=== PATIENT | female | born 1960 | race Hispanic/Latino ===

== ENCOUNTER 2017-10-29 12:00 | Outpatient (CLI) | payer BC | END 2017-10-29 12:01 | disposition home or self-care (01) | LOC: BICRAD 12:00 | PROVIDERS: ATTEND Internal Medicine Rheumatology | DX: Z11.1 Encounter for screening for respiratory tuberculosis (principal); M05.79 Rheumatoid arthritis with rheumatoid factor of multiple sites without organ or systems involvement; M81.0 Age-related osteoporosis without current pathological fracture | CPT/HCPCS: 71046 ==

== ENCOUNTER 2018-10-28 10:09 | Outpatient (CLI) | payer BC ==
--- NOTE | 2018-10-28 12:23 | RAD ---
LEFT HAND 3 VIEWS: Date: 10/28/18 HISTORY: Rheumatoid arthritis. Positive RA factor. Hand pain. FINDINGS: Narrowing of the radiocarpal joint. Mild collapse of the scaphoid and mild deformity and collapse of the lunate. Narrowing of the intercarpal joints with sclerosis. Subchondral cystic changes at the wri st. Narrowing of the MCP joints without erosive change. IP joints unremarkable. IMPRESSION: Abnormalities in the wrist with joint narrowing, cystic changes, and mild collapse of the scapholunat e. Narrowing of MCP joints without erosive change. POS: OFF
--- NOTE | 2018-10-28 12:25 | RAD ---
RIGHT KNEE 3 VIEWS: Date: 10/28/18 HISTORY: Knee pain. FINDINGS: Moderate to severe degenerative changes. There is loss of both medial and lateral joint space. There is articular irregularity with articular sclerosis and subchondral cystic changes. Hypertrophic spurr ing seen from both tibial and femoral condyles. Narrowing of the patellofemoral joint with mild spurr ing. Small joint effusion. IMPRESSION: Moderate degenerative changes at the knee as described. POS: OFF
--- NOTE | 2018-10-28 12:31 | RAD ---
RIGHT HAND 3 VIEWS: Date: 10/28/18 HISTORY: Rheumatoid arthritis. COMPARISON: Hand radiographs from 2014. FINDINGS: There is narrowing of the radiocarpal joint, which is progressed from the comparison examination. The re is medial deviation of the fifth metacarpophalangeal joint. Mild narrowing of the intercarpal joints. No erosions of the ulnar styloid appreciated. No significan t periostitis. Mild narrowing of the second-fifth metacarpophalangeal joints, as well as advanced degenerative disea se of the thumb metacarpophalangeal joints. There is erosion along the medial aspect of the small finger metacarpal base. IMPRESSION: Findings suggestive of inflammatory arthritis such as rheumatoid. POS: [facility]
== END 2018-10-28 10:10 | disposition home or self-care (01) ==
LOC: BICRAD 10:09
DX: M25.561 Pain in right knee (principal); M05.79 Rheumatoid arthritis with rheumatoid factor of multiple sites without organ or systems involvement; G89.29 Other chronic pain; M17.11 Unilateral primary osteoarthritis, right knee; M19.042 Primary osteoarthritis, left hand; M19.032 Primary osteoarthritis, left wrist

== ENCOUNTER 2019-01-07 07:24 | Outpatient (CLI) | payer BC ==
[2019-01-07 10:14] LABS: #Basophils 0.1 thou/uL (0.0-0.2); #Eosinphils 0.1 thou/uL (0.0-0.7); #Lymphocytes 2.2 thou/uL (1.20-3.40); #Monocytes 0.9 thou/uL (0.11-0.59); #Neutrophils 10.2 thou/uL (1.40-6.50); %Basophils 0.4 % (0.0-1.0); %Eosinophils 0.8 % (0.0-10.0); %Lymphocytes 16.1 % (21.0-51.0); %Monocytes 6.7 % (0.0-10.0); %Neutrophils 75.9 % (42.0-75.0); Hemoglobin 12.6 g/dL (12.0-16.0); Mean Corpuscular HGB CONC 32.2 g/dL (32.0-36.0); Mean Corpuscular Hemoglobin 28.1 pg (27.0-31.0); Mean Corpuscular Volume 87.5 fL (78.0-98.0); Mean Platelet Volume 7.5 fL (7.4-10.4); Platelet Count 345 thou/uL (130-400); RBC Distribution Width 14.2 % (11.5-14.5); Red Blood Cell (RBC) Count 4.49 mill/uL (4.20-5.40); White Blood Cell (WBC) Count 13.5 thou/uL (4.8-10.8)
[2019-01-07 10:16] LABS: Bacteria/HPF None Seen HPF (None Seen); Bilirubin Negative (Negative); Blood, Urine Negative (Negative); Clarity Clear (Clear); Glucose, Urine (Dipstick) Normal (Negative); Leukocyte 25 Leu/uL (Negative); Nitrite Negative (Negative); Protein, Urine (Dipstick) 20 mg/dL (Neg-Trace); Squamous Epithelial 0-3 HPF (0-3); Urobilinogen Normal mg/dL (Less than 2); WBC/HPF 0-3 HPF (0-3)
[2019-01-07 10:26] LABS: Prothrombin Time 12.8 SEC (12.0-14.7)
[2019-01-07 10:35] LABS: Anion Gap 12 mmol/L (10-20); BUN (Urea Nitrogen) 19 mg/dL (9.8-20.1); Calc. Creatinine Clearance 0 mL/min (70-130); Calcium 8.9 mg/dL (7.8-10.44); Carbon Dioxide 24 mmol/L (22-29); Chloride 109 mmol/L (98-107); Estimated GFR-MDRD Greater than 90; Glucose 101 mg/dL (70-105); Potassium 3.6 mmol/L (3.5-5.1); Sodium 141 mmol/L (136-145)
--- NOTE | 2019-01-10 14:21 | EKG ---
Test Reason : Blood Pressure : / mmHG Vent. Rate : 078 BPM Atrial Rate : 078 BPM P-R Int : 110 ms QRS Dur : 106 ms QT Int : 376 ms P-R-T Axes : 047 079 053 degrees QTc Int : 428 ms Sinus rhythm with short WI Otherwise normal ECG No previous ECGs available Confirmed by OBI DEGROOT (2) on 01/10/2019 2:21:43 PM Referred By: KERON Confirmed By:OBI DEGROOT
== END 2019-01-07 07:25 | disposition home or self-care (01) ==
LOC: LABBT 07:24
PROVIDERS: ATTEND Orthopaedic Surgery
DX: Z01.818 Encounter for other preprocedural examination (principal); M06.9 Rheumatoid arthritis, unspecified
CPT/HCPCS: 80048; 81001; 85025; 85610; 87081; 93005; 93010

== ENCOUNTER 2019-01-07 12:30 | Inpatient (IN) | payer BC ==
[2019-01-07 12:29] VITALS: BMI 24.0
[2019-01-21] MEDS ORDERED: Sodium Chloride 0.9% 100 ML ONE (06:05)
[2019-01-21] MEDS ORDERED: Tranexamic Acid 1,000 MG/10 ML VIAL ONE (06:05)
[2019-01-21] MEDS ORDERED: Midazolam HCl 2 mg/2 ml Vial ONE (06:27)
[2019-01-21] MEDS ORDERED: Lidocaine 1% (PF) 30 ML VIAL ONE (06:27)
[2019-01-21] MEDS ORDERED: Fentanyl 100 MCG/2 ML VIAL ONE ×2 (06:27→08:54)
[2019-01-21] MEDS ORDERED: Ropivacaine 0.2% HCl/PF 20 ML ONE (06:27)
[2019-01-21] MEDS ORDERED: Hydrocortisone Sod Succ/PF 100 mg/2 ml Vial ONE (06:31)
[2019-01-21] MEDS ORDERED: Fentanyl 100 MCG/2 ML VIAL SLOW IVP PRN ×2 (06:52)
[2019-01-21] MEDS ORDERED: Ondansetron PF 4 MG/2 ML Vial IVP PRN (06:52)
[2019-01-21] MEDS ORDERED: traMADol HCl 50 MG TAB PO PRN ×3 (06:52→07:04)
[2019-01-21] MEDS ORDERED: diphenhydrAMINE 25 MG CAP PO PRN (06:52)
[2019-01-21] MEDS ORDERED: Acetaminophen 325 MG TAB PO PRN (06:52)
[2019-01-21] MEDS ORDERED: HYDROcodone/Acetaminophen 10/325 mg Tablet PO PRN ×3 (06:52→07:04)
[2019-01-21] MEDS ORDERED: Zolpidem Tartrate 5 MG TAB PO PRN ×2 (06:52→07:04)
[2019-01-21] MEDS ORDERED: Promethazine HCl 25 MG/ML VIAL IM PRN ×3 (06:52→08:55)
[2019-01-21] MEDS ORDERED: IBUPROFEN PO PRN (06:54)
[2019-01-21] MEDS ORDERED: Vancomycin HCl 1 GM in Premix Bag 1 BAG IVPB SCH (07:00)
[2019-01-21] MEDS ORDERED: Fentanyl 100 MCG/2 ML VIAL IV PRN (07:04)
[2019-01-21] MEDS ORDERED: Ropivacaine HCl/PF 250 ML in Premix Bag 1 BAG NERVE BLCK SCH (07:04)
[2019-01-21] MEDS ORDERED: Ibuprofen 200 MG TAB PO PRN (07:21)
[2019-01-21] MEDS ORDERED: Ondansetron HCl/PF 4 MG/2 ML Vial IVP PRN (08:55)
[2019-01-21] MEDS ORDERED: Promethazine HCl 25 MG/ML VIAL SLOW IVP PRN (08:55)
[2019-01-21] MEDS ORDERED: predniSONE 5 MG TAB PO SCH (09:00)
--- NOTE | 2019-01-21 09:59 | RAD ---
XR Knee Rt 2 View: 01/21/2019 9:00 AM CLINICAL INDICATION: Right total knee prostheses COMPARISON: None. FINDINGS: Bones: No acute fracture is demonstrated. Joints: There is been interval placement of a right total knee prosthesis.. The prosthetic components project in expected position. There is scattered intra-articular and periarticular soft tissue gas. Soft Tissue: As above. IMPRESSION: Postoperative right knee.
--- NOTE | 2019-01-21 10:00 | OP ---
DATE OF PROCEDURE: 01/21/2019 PREOPERATIVE DIAGNOSIS: Rheumatoid arthritis, right knee. POSTOPERATIVE DIAGNOSIS: Rheumatoid arthritis, right knee. PROCEDURE PERFORMED: Right total knee arthroplasty using [place] Triathlon 2 femur, 2 tibia, 9 mm CS X3 polyethylene, and S27 patella. SUPERVISOR CUSTOMER SERVICES: Julius Humphrey PA-C BLOOD LOSS: Minimal. SPECIMEN: None. DRAIN: None. COMPLICATION: None. TOURNIQUET TIME: 56 minutes. PROCEDURE IN DETAIL: After informed consent was obtained in the preoperative holding area, the patient was taken to the operative suite where general anesthesia was induced. Once adequate level of general anesthesia was obtained, the patient was positioned and a well-padded tourniquet was placed around the right proximal thigh. The right lower extremity was then prepped and draped in the usual sterile fashion. Prior to exsanguination, a time-out was called and all members of the surgical team agreed upon site, surgeon, and patient. The extremity was then exsanguinated and the tourniquet was raised. A midline longitudinal incision was then made directly over the patella extending 2 fingerbreadths above the superior pole of the patella and 2 fingerbreadths inferior to the inferior patellar pole of the patella. Deeper subcutaneous layers were dissected sharply and local bleeding was controlled with Bovie electrocautery. A quad tendon longitudinal split was then made sharply and a median parapatellar arthrotomy was carried out both sharp and with Bovie electrocautery, carried down to 1 fingerbreadth medial to the tibial tubercle. The knee was then placed into flexion and the patella was everted nicely, and a copious fat pad ectomy was performed allowing for greater exposure of the tibia. The computer-assisted distal femoral fiducial was then placed and pinned firmly, and the distal femoral cutting guide was pinned firmly into place. The oscillating saw was then used to remove the appropriate amount of bone. The 4-in-1 cutting block was then placed on the distal femur and the oscillating saw was used to remove the appropriate amount of bone off the anterior, posterior, and chamfer cuts. After completion of bone cuts, the anterior cruciate ligament was resected sharply and the posterior cruciate ligament retractor was placed and the tibia was subluxed for better exposure. Partial meniscectomies were carried out, and the tibial computer-assisted fiducial was pinned, and the cutting guide was placed. Oscillating saw was then used to remove the bone, with Hohmann retractors used to take care and protect the collateral ligaments. After the tibial resection was performed, a laminar flight line service attendant was placed in between the freshened bone cuts. The knee placed at 90 degrees and further bilateral meniscectomies were carried out, and the curved osteotome and curettage were used to remove any excess bone spurs in the posterior compartment. The trial femoral component, tibial baseplate were placed with the appropriate polyethylene trial insert with an appropriate polyethylene spacer and patellar button. The knee was taken through full range of motion with flexion and extension from 0 to 90 degrees and patellar broach squarely in the trochlea without any squinting or subluxation noted. The knee was also stable to varus and valgus stressing at 0, 15, 45, and 90 degrees of flexion. The drawer was negative. All trial components were then removed and the keel punch was used to provide the appropriate defect in the tibia with a mallet. The freshened bone cuts were copiously irrigated with pulsatile lavage of about 1.5 L to remove all excess debris. The freshened bone cuts were then dried with suction and lap sponge. The knee was placed in flexion and retractors were placed to provide access to all bone cuts. Tobramycin-impregnated methyl methacrylate cement was then placed on the freshened bone cuts and implants which were malleted firmly into place. Curettage and Pima elevators were used to remove any excess bone cement. The knee was placed into full extension and the patellar button was placed under compression, and the cement was allowed to cure. Once completed, the components were again taken through full range of motion and copious irrigation of the knee was carried out with another liter of normal saline. All components were inspected fully with full range of motion and varus and valgus stressing. There was no laxity noted and full extension was observed clinically. Primary closure was accomplished with #2 interrupted Vicryl stitch of the arthrotomy defect. This was oversewn with a #2 running Quill barbed stitch. The gravitational platelet system was then injected into the arthrotomy prior to closure. The subcutaneous layer was then closed with a running 0 barbed Monocryl stitch and skin closure accomplished with a running subcuticular 3-0 Monocryl barbed Quill stitch and augmented with cement on the skin. Tourniquet was lowered. Good spontaneous return of distal pulses was noted clinically and a sterile dressing was applied to the incision. The procedure was terminated without any complications. The patient was awakened in the operative suite and taken to the recovery room in stable condition. Job ID: [id number]
[2019-01-21] MEDS ORDERED: Ketorolac Tromethamine 30 MG/ML VIAL IVP SCH (14:00)
[2019-01-21] MEDS ORDERED: Ropivacaine 0.2% HCl/PF (40 MG/20 ML VIAL) ONE (14:34)
[2019-01-21] MEDS ORDERED: Ketorolac Tromethamine 30 MG/ML VIAL ONE (14:34)
[2019-01-21] MEDS ORDERED: Ropivacaine 0.5% HCl/PF (150 MG/30 ML VIAL) ONE (14:34)
[2019-01-21] MEDS ORDERED: Ondansetron PF 4 MG/2 ML Vial ONE (14:34)
[2019-01-21] MEDS ORDERED: PROPOFOL 200 MG/20 ML VIAL ONE (14:34)
[2019-01-21] MEDS ORDERED: Lidocaine 1% PF 5 ML VIAL ONE (14:34)
[2019-01-21] MEDS: Sodium Chloride 0.9% 1,000 ML IV SCH ×3 (14:48→22:37)
[2019-01-21] MEDS: Ferrous Gluconate 324 MG TAB PO SCH ×2 (14:49→20:41)
[2019-01-21] MEDS: Aspirin 81 mg Enteric Coated Tablet PO SCH ×2 (14:49→20:40)
[2019-01-21] MEDS: Multivitamin W/ Minerals 1 TAB PO SCH (14:50)
[2019-01-21] MEDS: Ketorolac Tromethamine 30 MG/ML VIAL IVP SCH ×3 (15:53→20:41)
[2019-01-21] MEDS: CEFAZOLIN 2 GM in Premix Bag 1 BAG IVPB SCH ×2 (15:54→20:41)
[2019-01-21] MEDS: Senokot S 8.6-50 MG TAB PO SCH ×2 (16:10→20:40)
[2019-01-21] MEDS: predniSONE 5 MG TAB PO SCH ×2 (16:10→20:41)
[2019-01-21] MEDS: HYDROcodone/Acetaminophen 10/325 mg Tablet PO PRN (20:45)
[2019-01-21] MEDS: Ondansetron PF 4 MG/2 ML Vial IVP PRN (20:45)
--- NOTE | 2019-01-21 23:27 | PDOC.HOSPP ---
- Subjective Encounter Date: 01/21/19 Encounter Time: 15:30 Subjective: Patient seen and examined for med mngt. Pain controlled. No CP/SOB or palpitations. No new complaints. No overnight events - Objective Vital Signs & Weight: Vital Signs (12 hours) Temp Pulse Resp BP Pulse Ox 01/21/19 23:22 99 F 91 14 93/60 76 L 01/21/19 20:00 99 01/21/19 19:37 98.1 F 78 16 89/55 L 99 01/21/19 12:40 98.5 F 71 16 102/62 99 01/21/19 12:00 98 Weight Weight 123 lb I&O: 01/20/19 01/21/19 01/22/19 06:59 06:59 06:59 Intake Total 1750 Output Total 1400 Balance 350 Result Diagrams: 01/22/19 04:43 EKG Reviewed by me: Yes (SR) Hospitalist ROS - Review of Systems Respiratory: denies: cough, dry, shortness of breath, hemoptysis, SOB with excertion, pleuritic pain, sputum, wheezing, other Cardiovascular: denies: chest pain, palpitations, orthopnea, paroxysmal noc. dyspnea, edema, light headedness, other - Medication Medications: Active Medications Generic Name Dose Route Start Last Admin Trade Name Freq PRN Reason Stop Dose Admin Hydrocodone Bitart/Acetaminophen 1 tab 01/21/19 07:04 01/21/19 20:45 [place] 10/325 PO 1 tab Q4H PRN Administration Pain (1-3) Aspirin 81 mg 01/21/19 09:00 01/21/19 20:40 Ecotrin PO 81 mg BID NATALYA Administration Ferrous Gluconate 324 mg 01/21/19 09:00 01/21/19 20:41 Fergon PO 324 mg BID NATALYA Administration Sodium Chloride 1,000 mls @ 100 mls/hr 01/21/19 07:00 01/21/19 22:37 Normal Saline 0.9% IV Not Given .Q10H NATALYA Iron/Minerals/Multivitamins 1 tab 01/21/19 09:00 01/21/19 14:50 Theragran M PO Not Given DAILY NATALYA Ketorolac Tromethamine 30 mg 01/21/19 21:00 01/21/19 20:41 Toradol IVP 12/07/19 09:01 30 mg 0300,0900,1500,2100 NATALYA Administration Ondansetron HCl 4 mg 01/21/19 07:04 01/21/19 20:45 Zofran IVP 4 mg Q6H PRN Administration Nausea/Vomiting Prednisone 5 mg 01/21/19 09:00 01/21/19 20:41 Prednisone PO 5 mg BID NATALYA Administration Senna/Docusate Sodium 2 tab 01/21/19 09:00 01/21/19 20:40 Senokot S PO 2 tab BID NATALYA Administration - Exam General Appearance: NAD Heart: RRR, no gallops Respiratory: CTAB, no rales Gastrointestinal: soft, non-distended, normal bowel sounds Extremities: no edema Hosp A/P - Plan DVT proph w/SCDs Rhematoid Arthritis DJD PLAN: Change Prednisone to home dose 7.5 mg QAM and 2.5 mg QPM Add Pepcid Cont other meds Advised patient to minimize NSAIDs while on steroids Will follow. Thank you for this consultation
[2019-01-22] MEDS: Ketorolac Tromethamine 30 MG/ML VIAL IVP SCH ×4 (01:57→20:25)
[2019-01-22 05:42] LABS: Hemoglobin 10.5 g/dL (12.0-16.0); Mean Corpuscular HGB CONC 32.5 g/dL (32.0-36.0); Mean Corpuscular Volume 86.2 fL (78.0-98.0); Mean Platelet Volume 7.5 fL (7.4-10.4); Platelet Count 280 thou/uL (130-400); RBC Distribution Width 13.7 % (11.5-14.5); Red Blood Cell (RBC) Count 3.75 mill/uL (4.20-5.40)
[2019-01-22] MEDS: Ondansetron PF 4 MG/2 ML Vial IVP PRN (06:44)
[2019-01-22] MEDS: HYDROcodone/Acetaminophen 10/325 mg Tablet PO PRN ×3 (07:04→20:31)
[2019-01-22] MEDS: Aspirin 81 mg Enteric Coated Tablet PO SCH ×2 (07:48→20:25)
[2019-01-22] MEDS: Multivitamin W/ Minerals 1 TAB PO SCH (07:48)
[2019-01-22] MEDS: Senokot S 8.6-50 MG TAB PO SCH ×2 (07:48→22:05)
[2019-01-22] MEDS: predniSONE 5 MG TAB PO SCH (07:48)
[2019-01-22] MEDS: Ferrous Gluconate 324 MG TAB PO SCH ×2 (07:48→20:25)
[2019-01-22] MEDS ORDERED: predniSONE 1 MG/ML ML PO SCH ×2 (11:00→21:00)
[2019-01-22] MEDS: Sodium Chloride 0.9% 1,000 ML IV SCH ×2 (17:34→22:06)
[2019-01-23] MEDS: Ketorolac Tromethamine 30 MG/ML VIAL IVP SCH ×2 (04:47→09:08)
[2019-01-23 06:16] LABS: Hemoglobin 10.5 g/dL (12.0-16.0); Mean Corpuscular HGB CONC 32.6 g/dL (32.0-36.0); Mean Corpuscular Hemoglobin 28.1 pg (27.0-31.0); Mean Corpuscular Volume 86.2 fL (78.0-98.0); Mean Platelet Volume 7.3 fL (7.4-10.4); Platelet Count 282 thou/uL (130-400); RBC Distribution Width 13.7 % (11.5-14.5); Red Blood Cell (RBC) Count 3.72 mill/uL (4.20-5.40); White Blood Cell (WBC) Count 14.5 thou/uL (4.8-10.8)
[2019-01-23] MEDS: HYDROcodone/Acetaminophen 10/325 mg Tablet PO PRN (06:54)
[2019-01-23 07:40] VITALS: BP 115/71; TEMP 98.3
[2019-01-23] MEDS ORDERED: predniSONE 1 MG/ML ML PO SCH (09:00)
[2019-01-23] MEDS ORDERED: Famotidine 20 MG TAB PO SCH (09:00)
[2019-01-23] MEDS: Multivitamin W/ Minerals 1 TAB PO SCH (09:08)
[2019-01-23] MEDS: Senokot S 8.6-50 MG TAB PO SCH (09:08)
[2019-01-23] MEDS: Aspirin 81 mg Enteric Coated Tablet PO SCH (09:09)
[2019-01-23] MEDS: Ferrous Gluconate 324 MG TAB PO SCH (09:09)
--- NOTE | 2019-01-25 07:37 | DIS ---
DATE OF ADMISSION: 01/21/2019 DATE OF DISCHARGE: 01/23/2019 CONSULTANTS: Include [facility]. PREOPERATIVE DIAGNOSIS: Rheumatoid arthritis, right knee. POSTOPERATIVE DIAGNOSIS: Rheumatoid arthritis, right knee. PROCEDURE PERFORMED: Right total knee arthroplasty using [place] triathlon system. BRIEF HOSPITAL COURSE: This is a 59-year-old female who was indicated for the above-mentioned procedure. She has a long history of rheumatoid arthritis and has failed conservative management. She did well in the operative suite and postoperatively was admitted to [address] in [facility]. She worked with physical and occupational therapist. She received postoperative analgesia from the anesthesiologist group. She also received postoperative antibiotics. She did well postoperatively with therapy. On postoperative day #2, she was discharged home. No complications occurred during her hospital stay. DISCHARGE DISPOSITION: Home. DISCHARGE CONDITION: Stable. DISCHARGE INSTRUCTIONS: The patient will work with home health physical therapy. She will follow up with Dr. Fuentes as scheduled. She will keep her surgical site clean, dry, and intact until followup. DISCHARGE MEDICATIONS: See MAR. Job ID: [id number]
== END 2019-01-23 12:03 | disposition home or self-care (01) | DRG 470 ==
LOC: SJJU 01-21 05:24
PROVIDERS: ADMIT Orthopaedic Surgery; ATTEND Orthopaedic Surgery
PROC: 0SRC0J9 Replacement of Right Knee Joint with Synthetic Substitute, Cemented, Open Approach (ICD-10-PCS; principal; 2019-01-21)
DX: M06.861 Other specified rheumatoid arthritis, right knee (principal)
CPT/HCPCS: 36415; 85027; 87070; 87205; C1713; C1776; J0131; J0690; J1720; J1885; J2001; J2250; J2405; J2704; J2795; J3010; J3370; J3490; J7512

== ENCOUNTER 2022-12-18 10:39 | Outpatient (CLI) | payer BC | END 2022-12-18 10:40 | disposition home or self-care (01) | LOC: BICRAD 10:39 | PROVIDERS: ATTEND Internal Medicine Rheumatology | DX: M05.79 Rheumatoid arthritis with rheumatoid factor of multiple sites without organ or systems involvement (principal); M17.12 Unilateral primary osteoarthritis, left knee; Z86.15 Personal history of latent tuberculosis infection; R91.8 Other nonspecific abnormal finding of lung field | CPT/HCPCS: 71046 ==